=== PATIENT | male | born 1945 | race Caucasian/White ===

== ENCOUNTER 2016-12-18 17:43 | Emergency (ER) | payer MEDICARE, MEDICAID ==
[2016-12-18] VITALS (8 sets, daily range): BP systolic 142–166; BP diastolic 72–88; PULSE 88–111; RESP 20–24; TEMP 98.4–99.5; O2SAT 93–98
[~2016-12-18 17:43] MED LIST: LORTA5 PO
--- NOTE | 2016-12-18 18:30 | RADRPT ---
EXAM DATE/TIME: 12/18/2016 18:08 [facility] COMPARISON: CHEST SINGLE AP, August 07, 2014, 18:56. INDICATIONS : Fever. MEDICAL HISTORY : Hypertension. Colon Cancer. SURGICAL HISTORY : Colostomy. ENCOUNTER: Initial ACUITY: 1 day PAIN SCORE: 0/10 LOCATION: Bilateral chest FINDINGS: Frontal and lateral views of the chest demonstrate normal-sized cardiac silhouette. There is mild air space opacity only visualized on the lateral projection. Based on location it could be in the right m iddle lobe or left upper lobe inferiorly. No pleural effusion or pneumothorax is identified. Bones an d soft tissues demonstrate no acute finding. There is a stable bone of the left humeral head. CONCLUSION: Mild airspace opacity in either the inferior left upper lobe or right middle lobe. This could represe nt an infectious process given the history of fever. Suggest follow up imaging to confirm resolution. Rodolfo Carlson MD on December 18, 2016 at 18:27 Board Certified Radiologist. This report was verified electronically.
[2016-12-18] MEDS ORDERED: SODIUM CHLOR 0.9% 1000 ML INJ 1,000 ML IV SCH (18:44)
--- NOTE | 2016-12-18 19:20 | PD ---
HPI Chief Complaint: Syncope/Near-Syncope Time Seen by Provider: 18:38 Travel History International Travel<30 days: No Contact w/Intl Traveler<30days: No Traveled to known affect area: No History of Present Illness HPI 71-year-old male that presents to the ED for evaluation of weakness, fever and possible syncope per triage repot. Per patient she's been feeling weak and tired today and with no apetite which is unusual for him. He woke up like this. Yesterday he was completely fine. Per patient he denies actual syncope but he states that he has been on bed or in his couch and fell asleep twice for about two hours which is unusual. He did not loss consciousness or had any dizzyness. He denies any head injury or losing consciousness. He denies any loss of consciousness but states that he's been feeling very tired and he believes that he might have the flu. He states that he has a history of hypertension, diabetes and high cholesterol. Denies any chest pain or SOB. No recent travel. No history of heart disease but has a history of Parkinson's. He denies any history of COPD or asthma. He denies any sick contacts. He states that he has body aches and fever. She denies taking any blood thinners. No allergies to medication. He states that he has currently no pain but he gets body aches on occasion. He has not taken anything for this. Denies any headache. No blurry vision or double vision. PFSH Past Medical History Arthritis: No Asthma: No Heart Rhythm Problems: No Cancer: Yes (COLON CA) Cardiovascular Problems: Yes (HTN) High Cholesterol: No Chest Pain: No Congestive Heart Failure: No COPD: No Cerebrovascular Accident: No Diabetes: Yes Diminished Hearing: No GERD: No Genitourinary: No Headaches: Yes Hiatal Hernia: No Hypertension: Yes Kidney Stones: No Musculoskeletal: No Neurologic: Yes Reproductive: No Immunizations Current: Yes Migraines: No Renal Failure: No Seizures: No Sleep Apnea: No Ulcer: No Past Surgical History Abdominal Surgery: Yes (colon resection with colostomy placement) Cardiac Surgery: No Ear Surgery: No Endocrine Surgery: No Eye Surgery: No Genitourinary Surgery: No Gynecologic Surgery: No Oral Surgery: No Thoracic Surgery: No Social History Alcohol Use: No Tobacco Use: No Substance Use: No Allergies-Medications (Allergen,Severity, Reaction): Coded Allergies: No Known Allergies (Unverified , 08/20/14) Reported Meds & Prescriptions Reported Meds & Active Scripts Active Tessalon Perles (Benzonatate) 100 Mg Cap 100 Mg PO TID PRN Azithromycin 250 Mg Tab 250 Mg PO DIRECTED Take 2 tabs (500 mg) on day 1 then 1 tab daily x 4 days. Reported Trulicity Inj (Dulaglutide Inj) 0.75 Mg/0.5 Ml Pen 0.75 Mg SQ SATURDAY Atorvastatin (Atorvastatin Calcium) 20 Mg Tab 20 Mg PO HS Glipizide 10 Mg Tab 10 Mg PO DAILY Take 30 minutes before a meal Lisinopril 2.5 Mg Tab 2.5 Mg PO DAILY Review of Systems Except as stated in HPI: all other systems reviewed are Neg Physical Exam Narrative GENERAL: Well-nourished, well-developed patient in no apparent distress. SKIN: Warm and dry. HEAD: Atraumatic. Normocephalic. EYES: Pupils equal and round reactive to light and accommodation. No scleral icterus. No injection or drainage. ENT: No nasal bleeding or discharge. Mucous membranes pink and moist. TMs are clear with no sign of infection or perforation. No mastoid tenderness. Ear canals are intact bilaterally. No lymphadenopathy. Nostril mucosa is red and moist with clear mucus noted. No sinus tenderness to palpation noted. Tonsils are not enlarged or swollen. No ulvua Deviation. Tongue is midline. NECK: Trachea midline. No JVD. No meningeal signs noted CARDIOVASCULAR: Regular rate and rhythm. RESPIRATORY: No accessory muscle use. Clear to auscultation. Breath sounds equal bilaterally. GASTROINTESTINAL: Abdomen soft, non-tender, nondistended. Hepatic and splenic margins not palpable. MUSCULOSKELETAL: Extremities without clubbing, cyanosis, or edema. No obvious deformities. NEUROLOGICAL: Awake and alert. No obvious cranial nerve deficits. Motor grossly within normal limits. Five out of 5 muscle strength in the arms and legs. Normal speech. PSYCHIATRIC: Appropriate mood and affect; insight and judgment normal. Data Data Last Documented VS Vital Signs Date Time Temp Pulse Resp B/P (MAP) Pulse Ox O2 Delivery O2 Flow Rate FiO2 12/18/16 21:00 99.5 94 20 153/81 (105) 97 Nasal Cannula 2.00 Orders Orders Electrocardiogram (12/18/16 17:59) Complete Blood Count With Diff (12/18/16 17:59) Comprehensive Metabolic Panel (12/18/16 17:59) Prothrombin Time / Inr (Pt) (12/18/16:59) Act Partial Throm Time (Ptt) (12/18/16 17:59) Lactic Acid Sepsis Protocol (12/18/16 17:59) Magnesium (Mg) (12/18/16 17:59) Ckmb (Isoenzyme) Profile (12/18/16:59) Troponin I (12/18/16:59) Urinalysis - C+S If Indicated (12/18/16 17:59) Influenzae A/B Antigen (12/18/16 17:59) Blood Culture (12/18/16:59) Blood Glucose (12/18/16:59) Chest, Pa & Lat (12/18/16 17:59) Sodium Chlor 0.9% 1000 Ml Inj (Ns 1000 M (12/18/16 18:44) Sodium Chlorid 0.9% 500 Ml Inj (Ns 500 M (12/18/16 21:00) Ceftriaxone Inj (Rocephin Inj) (12/18/16 21:00) Azithromycin Inj (Zithromax Inj) (12/18/16 21:00) CKMB (12/18/16 19:50) CKMB% (12/18/16 19:50) Potassium Chlor 10 Meq Premix (Kcl 10 Me (12/18/16 21:30) Potassium Chloride (Kcl) (12/18/16 21:30) Ed Discharge Order (12/18/16 21:36) Labs Laboratory Tests Test 12/18/16 19:50 12/18/16 20:30 White Blood Count 12.0 TH/MM3 Red Blood Count 5.49 MIL/MM3 Hemoglobin 15.0 GM/DL Hematocrit 45.0 % Mean Corpuscular Volume 82.0 FL Mean Corpuscular Hemoglobin 27.3 PG Mean Corpuscular Hemoglobin Concent 33.4 % Red Cell Distribution Width 13.6 % Platelet Count 132 TH/MM3 Mean Platelet Volume 9.7 FL Neutrophils (%) (Auto) 84.1 % Lymphocytes (%) (Auto) 9.7 % Monocytes (%) (Auto) 5.6 % Eosinophils (%) (Auto) 0.5 % Basophils (%) (Auto) 0.1 % Neutrophils # (Auto) 10.1 TH/MM3 Lymphocytes # (Auto) 1.2 TH/MM3 Monocytes # (Auto) 0.7 TH/MM3 Eosinophils # (Auto) 0.1 TH/MM3 Basophils # (Auto) 0.0 TH/MM3 CBC Comment DIFF FINAL Differential Comment Prothrombin Time 11.4 SEC Prothromb Time International Ratio 1.0 RATIO Activated Partial Thromboplast Time 28.9 SEC Blood Urea Nitrogen 9 MG/DL Creatinine 0.81 MG/DL Random Glucose 104 MG/DL Total Protein 7.7 GM/DL Albumin 3.9 GM/DL Calcium Level 8.7 MG/DL Magnesium Level 1.9 MG/DL Alkaline Phosphatase 90 U/L Aspartate Amino Transf (AST/SGOT) 15 U/L Alanine Aminotransferase (ALT/SGPT) 26 U/L Total Bilirubin 1.2 MG/DL Sodium Level 140 MEQ/L Potassium Level 2.7 MEQ/L Chloride Level 104 MEQ/L Carbon Dioxide Level 26.1 MEQ/L Anion Gap 10 MEQ/L Estimat Glomerular Filtration Rate 94 ML/MIN Lactic Acid Level 1.1 mmol/L Total Creatine Kinase 108 U/L Creatine Kinase MB 0.8 NG/ML Troponin I LESS THAN 0.02 NG/ML Urine Color LIGHT-YELLOW Urine Turbidity CLEAR Urine pH 6.5 Urine Specific Mcmillan 1.006 Urine Protein NEG mg/dL Urine Glucose (UA) NEG mg/dL Urine Ketones NEG mg/dL Urine Occult Blood NEG Urine Nitrite NEG Urine Bilirubin NEG Urine Urobilinogen LESS THAN 2.0 MG/DL Urine Leukocyte Esterase NEG Urine RBC 1 /hpf Urine WBC 1 /hpf Urine Sperm RARE Microscopic Urinalysis Comment CATH-CULT NOT IND MDM Medical Decision Making Medical Screen Exam Complete: Yes Emergency Medical Condition: Yes Medical Record Reviewed: Yes Interpretation(s) Last Impressions Chest X-Ray 12/18/16 0315 Signed Impressions: Service Date/Time: Sunday, December 18, 2016 18:08 - CONCLUSION: Mild airspace opacity in either the inferior left upper lobe or right middle lobe. This could represent an infectious process given the history of fever. Suggest follow up imaging to confirm resolution. Rodolfo Carlson MD CBC & BMP Diagram 12/18/16 19:50 Total Protein 7.7, Albumin 3.9, Calcium Level 8.7, Magnesium Level 1.9, Alkaline Phosphatase 90, Aspartate Amino Transf (AST/SGOT) 15, Alanine Aminotransferase (ALT/SGPT) 26, Total Bilirubin 1.2 H Troponin negative, CK-MB negative. Coags within normal limits. Urine within normal limits. Differential Diagnosis Pneumonia versus sepsis versus URI versus influenza versus syncope Narrative Course 71-year-old male that presents to the ED for evaluation of weakness and fever. Patient was properly examined and was found to have signs and symptoms very tall he was appear to be related to likely infection. Patient does appear to have a low-grade fever and tachycardia. Labs and imaging were ordered in triage. Of note triage note mentioned the patient had syncopal episodes. Patient himself denies this and states that he just fell asleep multiple times. Per patient he just feels weak and tired. He denies any lightheadedness or dizziness. I asked him this 3 times in different forms and he completely denies any syncopal episodes. He appears to be of sound mind. At this time he does appear to have possible pneumonia from CXR. Patient was given IV fluids. Labs did show slightly elevated WBC account of 12. Patient's bowels have been reassuring although his O2 oxygenation has been in the low 90s. We to 95 and 93. Patient states that he feels improved. He is a serious to go home and he does not want to stay in the hospital. Per patient he has taken care of his cats at home At this time I think this is reasonable. Patient appears to be well and his symptoms have improved with fluids. Vitals are stable. He was given the first dose of ceftriaxone and azithromycin here. Patient was given prescription for azithromycin and Tessalon Perles. I had a long discussion with the patient that if anything changes he is to come back here to the ED. He agrees and understands this plan. Case was discussed in my attending Dr Méndez who agrees with plan. Follow up with PCP. All QUESTIONS were answered to the best of my ability. Sepsis Criteria SIRS Criteria (2 or more): Heart rate over 90 Diagnosis Primary Impression: Community acquired pneumonia Qualified Codes: J18.1 - Lobar pneumonia, unspecified organism Patient Instructions: General Instructions Additional Instructions: Motrin and Tylenol for pain and fever. You can use [id number] antihistamine as well as well as Mucinex as needed for runny nose and congestion. Cough drops for cough as needed. Drink plenty of fluids. Follow-up with PCP. See ED for worsening symptoms. Med/Other Pt SpecificInfo: Prescription(s) given Scripts Benzonatate (Tessalon Perles) 100 Mg Cap 100 MG PO TID Y for COUGH, #20 CAP 0 Refills Prov: Sam Lan MD 12/18/16 Azithromycin (Azithromycin) 250 Mg Tab 250 MG PO DIRECTED for Infection, #6 TAB 0 Refills Take 2 tabs (500 mg) on day 1 then 1 tab daily x 4 days. Prov: Sam Lan MD 12/18/16 Disposition: 01 DISCHARGE HOME Condition: Stable Thor Levine Dec 18, 2016 19:20
[2016-12-18 20:41] LABS: AUTOMATED NEUTROPHIL # 10.1 TH/MM3 (1.8-7.7); BASOPHIL % 0.1 % (0.0-2.0); EOSINOPHIL # 0.1 TH/MM3 (0-0.4); EOSINOPHIL % 0.5 % (0.0-4.0); HEMO FLAGS DIFF FINAL; LYMPH % 9.7 % (9.0-44.0); LYMPHOCYTE # 1.2 TH/MM3 (1.0-4.8); MEAN CORPUSCULAR HEMOGLOBIN 27.3 PG (27.0-34.0); MEAN CORPUSCULAR HGB CONC 33.4 % (32.0-36.0); MONO % 5.6 % (0.0-8.0); NEUT % 84.1 % (16.0-70.0); PLATELET COUNT 132 TH/MM3 (150-450); RED BLOOD COUNT 5.49 MIL/MM3 (4.50-5.90); RED CELL DISTRIBUTION WIDTH 13.6 % (11.6-17.2)
[2016-12-18 20:54] LABS: APTT (PATIENT) 28.9 SEC (24.3-30.1); PROTHROMBIN TIME - PATIENT 11.4 SEC (9.8-11.6)
[2016-12-18 21:00] LABS: BLOOD, URINE NEG (NEG); COMMENT (UR) CATH-CULT NOT IND; CULTURE IF INDICATED CATH CULTURE NOT IND; GLUCOSE,URINE NEG (NEG); KETONE, URINE NEG (NEG); NITRITE,URINE NEG (NEG); PH, URINE 6.5 (5.0-8.5); URINE COLOR LIGHT-YELLOW (YELLW/STRAW)
[2016-12-18] MEDS ORDERED: SODIUM CHLORID 0.9% 500 ML INJ 500 ML IV ONE (21:00)
[2016-12-18] MEDS ORDERED: AZITHROMYCIN INJ 500 MG in SODIUM CHLOR 0.9% 250 ML INJ 250 ML IV ONE (21:00)
[2016-12-18] MEDS ORDERED: cefTRIAXone INJ 1,000 MG in SODIUM CHLORIDE 0.9% INJ 100 ML IV ONE (21:00)
[2016-12-18] MEDS ORDERED: LISI2.5T3 PO (21:13)
[2016-12-18] MEDS ORDERED: GLIP10TA6 PO (21:13)
[2016-12-18] MEDS ORDERED: ATOR20TA15 PO (21:13)
[2016-12-18] MEDS ORDERED: DULA10IN SQ (21:13)
[2016-12-18 21:23] LABS: ALKALINE PHOSPHATASE 90 U/L (45-117); ALT (GPT) 26 U/L (12-78); ANION GAP 10 MEQ/L (5-15); AST (GOT) 15 U/L (15-37); BICARBONATE 26.1 MEQ/L (21.0-32.0); BLOOD UREA NITROGEN 9 MG/DL (7-18); CHLORIDE 104 MEQ/L (98-107); CREATINE KINASE 108 U/L (39-308); GLOMERULAR FILTRATION RATE 94 ML/MIN (>89); MAGNESIUM 1.9 MG/DL (1.5-2.5); SODIUM (NA) 140 MEQ/L (136-145); TOTAL BILIRUBIN ADULT 1.2 MG/DL (0.2-1.0)
[2016-12-18 21:26] LABS: POTASSIUM 2.7 MEQ/L (3.5-5.1)
[2016-12-18] MEDS ORDERED: POTASSIUM CHLORIDE 20 MEQ CONTROLLED RELEASE TAB PO ONE (21:30)
[2016-12-18] MEDS ORDERED: POTASSIUM CHLOR 10 MEQ PREMIX 100 ML IV ONE (21:30)
[2016-12-18] MEDS ORDERED: AZIT250T3 PO (21:31)
[2016-12-18] MEDS ORDERED: BENZ100 PO (21:32)
[2016-12-18 21:43] LABS: CKMB 0.8 NG/ML (0.5-3.6)
--- NOTE | 2016-12-19 09:44 | EKG ---
Date Performed: 12/18/2016 Time Performed: 18:54:02 PTAGE: 71 years EKG: ATRIAL FLUTTER/TACHYCARDIA WITH RAPID VENTRICULAR RESPONSE ABNORMAL RHYTHM ECG PREVIOUS TRACING : 08/07/2014 11.46 DOCTOR: Sam Ventura Interpretating Date/Time 12/19/2016 09:43:04
== END 2016-12-19 | disposition home or self-care (01) ==
LOC: NEPC 17:43
DX: J18.8 Other pneumonia, unspecified organism (principal); I10 Essential (primary) hypertension; E11.9 Type 2 diabetes mellitus without complications; E78.00 Pure hypercholesterolemia, unspecified; I48.92 Unspecified atrial flutter; R00.0 Tachycardia, unspecified; R94.31 Abnormal electrocardiogram [ECG] [EKG]; Z79.899 Other long term (current) drug therapy
CPT/HCPCS: 71020; 80053; 81001; 82550; 82552; 83605; 83735; 84484; 85025; 85610; 85730; 87040; 87804; 93005; 96361; 96365; 96368; 99285; J0456; J0696; J3480; J7030; J7040; J7050